=== PATIENT | female | born 1945 | race Caucasian/White ===

== ENCOUNTER 2024-04-01 21:20 | Emergency (ER) | payer MEDICARE, OTHER, SELFPAY ==
--- NOTE | ~2024-04-01 | CT_ITS ---
EXAMINATION: CT ABDOMEN AND PELVIS WITHOUT CONTRAST CLINICAL INFORMATION: Left flank pain history of stone COMPARISON: CT abdomen/pelvis 03/15/2010 TECHNIQUE: Multidetector volumetric imaging was performed from the superior aspect of the liver through the pubic symphysis. Sagittal and coronal reformatted images were obtained on the technologist's workstation. This CT examination was performed using dose optimization techniques as appropriate, variously including the following: *Automated exposure control *Adjustment of mA and/or kV according to patient size (this includes techniques or standardized protocols for targeted exams where dose is matched to indication/reason for exam; i.e. extremities or head) *Use of iterative reconstruction technique DLP: 1172 mGy-cm FINDINGS: LUNG BASES: Mild bibasilar atelectasis. No pleural effusion. Normal-sized heart without pericardial effusion. No coronary arterial calcifications noted. LIVER, GALLBLADDER, AND BILIARY TREE: Liver is diffusely hypoattenuating relative to the spleen. The liver is normal in size and shape. No focal hepatic lesion or biliary ductal dilatation is present. The gallbladder is physiologically distended with a 3 cm peripherally calcified gallstone, similar to 2010. No gallbladder wall thickening, or obvious pericholecystic inflammatory changes. PANCREAS: Unremarkable. SPLEEN: Unremarkable. ADRENAL GLANDS: Unremarkable. KIDNEYS AND URETERS: There is a 0.3 cm calculus in the proximal left ureter minimal associated left hydronephrosis. No additional nephrolithiasis. No right hydronephrosis. The kidneys are normal in size, shape, and attenuation. No perinephric stranding. BLADDER: Unremarkable. GASTROINTESTINAL TRACT: The small and large bowel are nondilated. Mild colonic diverticulosis without evidence of acute diverticulitis. Normal appendix. ABDOMINAL WALL: No bowel containing hernia is appreciated. LYMPH NODES: Normal. VASCULAR: The abdominal aorta is nonaneurysmal. Mild scattered atheromatous calcifications. PELVIC VISCERA: Normal CT appearance of the uterus. No adnexal masses. OSSEOUS STRUCTURES: No acute or suspicious osseous abnormality. Multilevel facet arthropathy in the lumbar spine. CT/CT abdomen pelvis wo IV con IMPRESSION: 1. There is a 0.3 cm calculus in the proximal left ureter with minimal associated left hydronephrosis. No additional nephrolithiasis. 2. Cholelithiasis. 3. Hepatic steatosis. 4. Mild colonic diverticulosis without evidence of acute diverticulitis. Fleischner guidelines were followed.
--- NOTE | 2024-04-01 21:38 | ED.ABDPAIN ---
HPI - Abdominal Pain General Chief Complaint: Abdominal Pain Stated Complaint: L flank pain moving towards back, kidney stones Time Seen by Provider: 04/01/24 21:36 Source: patient Mode of arrival: EMS Limitations: no limitations History of Present Illness HPI narrative: Patient with history of nonobstructive kidney stone noticed sudden onset of pain in the left flank area earlier today associated with nausea radiating to the left front of the abdomen no hematuria no urinary complaints no fever no chills patient never had similar pain in the past Related Data Previous Rx's ?Medication ?Instructions ?Recorded tamsulosin 0.4 mg capsule (Flomax) 0.4 mg PO BEDTIME #7 caps 04/02/24 tramadol 50 mg tablet 50 mg PO Q8-10H PRN pain #20 tabs 04/02/24 Allergies Allergy/AdvReac Type Severity Reaction Status Date / Time cephalexin [Cephalexin] Allergy Unknown UNKNOWN Verified 04/01/24 21:51 codeine [Codeine] Allergy Unknown UNKNOWN Verified 04/01/24 21:51 Review of Systems Review of Systems Yes all other systems are reviewed and are negative [facility] Social History Social History Alcohol intake: never Smoked in Last 30 Days: No Use of substances other than those prescribed or required for medical reasons: No Advance Directives: Yes Advance Directives Information Provided: No Advance Directives on File: No Do you have a plan to hurt others: No Plan Physical Exam ED Vital Signs: Vital Signs - 24 hr 04/01/24 21:57 Temperature 98.4 F Pulse Rate 67 Respiratory Rate 16 Blood Pressure 154/69 H Pulse Oximetry 94 Oxygen Delivery Method Room Air BMI result Body Mass Index 44.9 Appearance: Alert. Oriented X3. No acute distress. Eyes: No pallor or icterus ENT: Pharynx normal. Oral Mucosa moist Neck: Normal inspection. Neck supple. CVS: Normal heart rate and rhythm. Pulses normal. Respiratory: No respiratory distress. Equal air entry bilateral, no wheezing/rales/rhonchi Abdomen: Soft and nontender. Bowel sounds are present, no mass palpable, L CVA tenderness Skin: Skin warm and dry. Normal skin color. Normal skin turgor. Extremities: No lower extremity edema. No calf tenderness Neuro: Oriented X 3. Medical Decision Making Medical Decision Making MDM Narrative: Patient with 3 mm proximal left ureteral stone pain-free after IV hydration and pain medication in the ER likely going to pass. Will discharge patient home on Flomax and tramadol for pain advised to follow with urologist Differential Diagnosis Differential Diagnoses: The differential diagnosis associated with the presentation includes Renal colic/biliary colic/UTI Lab Data MDM Lab Attestation statement: I reviewed the patient's lab results. 04/01/24 23:11 04/01/24 23:11 Labs: Lab Results 04/01/24 Range/Units 23:11 WBC 9.3 (4.8-10.8) X10*3/uL RBC 4.33 (4.20-5.50) X10*6/uL Hgb 14.1 (12.0-16.0) g/dl Hct 41.0 (37.0-47.0) % MCV 94.7 (80.0-98.0) fL MCH 32.6 (27.0-33.0) pg MCHC 34.4 (31.0-35.0) g/dl RDW 13.2 (11.0-16.0) % Plt Count 167 (160-400) X10*3/uL MPV 10.9 (9.4-12.3) fL Immature Gran % (Auto) 0.2 (0.0-0.4) % Neut % (Auto) 84.6 H (45-73) % Lymph % (Auto) 8.3 L (20-40) % Haskell % (Auto) 5.5 (2-11) % Eos % (Auto) 0.6 (0-4) % Baso % (Auto) 0.8 (0-2) % Lymph # (Auto) 0.8 L (1.2-4.9) X10*3/uL Haskell # (Auto) 0.5 (0.1-1.2) X10*3/uL Eos # (Auto) 0.1 (0.0-0.4) X10*3/uL Baso # (Auto) 0.1 (0.0-0.2) X10*3/uL Abs Immat Gran (auto) 0.02 (0.00-0.03) X10*3/uL Absolute Neuts (auto) 7.9 (2.0-8.3) x10*3/uL Absolute Nucleated RBC 0.000 (0.0-0.012) X10*3/uL Nucleated RBC % (auto) 0.0 (0.0-0.2) /100WBC Sodium 139 (135-145) mmol/L Potassium 4.4 (3.3-5.1) mmol/L Chloride 106 (96-108) mmol/L Carbon Dioxide 22 (22-29) mmol/L Anion Gap 15 (12-20) BUN 24 H (9-16) mg/dL Creatinine 0.90 (0.5-1.4) mg/dL Estim Creat Clear Calc 73.4 Estimated GFR > 60 Random Glucose 193 H (60-115) mg/dL Calcium 9.2 (8.4-10.2) mg/dL Total Bilirubin 0.3 (0.0-1.0) mg/dL AST 43 H (5-31) U/L ALT 40 H (0-31) U/L Alkaline Phosphatase 55 (39-117) U/L Total Protein 7.1 (6.5-8.0) g/dL Albumin 4.1 (3.5-5.0) g/dL Lipase 31 (8-78) U/L Independent Interpretation I performed an independent interpretation of an: CT Scan Radiology Impression Discussion of test interpretation with radiology: I have reviewed the radiologist's reading. Radiologist Impression: CT/CT abdomen pelvis wo IV con IMPRESSION: 1. There is a 0.3 cm calculus in the proximal left ureter with minimal associated left hydronephrosis. No additional nephrolithiasis. 2. Cholelithiasis. 3. Hepatic steatosis. 4. Mild colonic diverticulosis without evidence of acute diverticulitis. Medications Administered Discontinued Medications Generic Name Dose Route Start Last Admin Trade Name Freq PRN Reason Stop Dose Admin Sodium Chloride 1,000 mls @ 999 mls/hr 04/01/24 22:18 04/01/24 22:41 Ns IV 04/01/24 23:18 999 mls/hr .Q1H1M ONE Administration Ketorolac Tromethamine 30 mg 04/01/24 22:18 04/01/24 22:46 Ketorolac Tromethamine 30 Mg/Ml Vial IVPUSH 04/01/24 22:19 30 mg ONCE ONE Administration Morphine Sulfate 2 mg 04/01/24 22:18 04/01/24 22:46 Morphine Sulfate 4 Mg/Ml Cartridge IVPUSH 04/01/24 22:19 2 mg ONCE ONE Administration Protocol Discharge Plan Discharge Clinical Impression: Calculus of left ureter Patient Disposition: Home, Self-Care Instructions: Ureteral Stones (ED) Additional Instructions: Drink plenty of fluids Pain medication as prescribed Flomax take 1 tablet daily till you pass the stone Follow-up with urologist if pain continues Prescriptions: New tramadol 50 mg tablet 50 mg PO Q8-10H PRN (Reason: pain) Qty: 20 0RF tamsulosin [Flomax] 0.4 mg capsule 0.4 mg PO BEDTIME Qty: 7 0RF Referrals: Tushar Spear MD [Physician] - 2 weeks Print Language: Turkish
[2024-04-01 21:50] VITALS: BMI 44.9
[2024-04-01 21:57] VITALS: BP 154/69; PULSE 67; RESP 16; TEMP 36.9; O2SAT 94
[2024-04-01] MEDS: 0.9 % Sodium Chloride 1,000 ML 999 ML IV (22:41)
[2024-04-01] MEDS: Morphine Sulfate 4 MG/ML CARTRIDGE 2 MG IVPUSH (22:46)
[2024-04-01] MEDS: Ketorolac Tromethamine 30 MG/ML VIAL IVPUSH (22:46)
--- NOTE | 2024-04-01 22:55 | PC.NURSE ---
pt medicated per MAR- 1l IVF infusing per order, pt awaiting CT scan read
[2024-04-01 23:14] LABS: MANUAL DIFF FLAG NO
[2024-04-01 23:15] LABS: Basophils Absolute Auto 0.1 X10*3/uL (0.0-0.2); Basophils Percent Auto 0.8 % (0-2); Eosinophils Absolute Auto 0.1 X10*3/uL (0.0-0.4); Eosinophils Percent Auto 0.6 % (0-4); Hemoglobin 14.1 g/dl (12.0-16.0); Imm Gran Abs Auto 0.02 X10*3/uL (0.00-0.03); Imm Gran Pct Auto 0.2 % (0.0-0.4); Lymphocytes Absolute Auto 0.8 X10*3/uL (1.2-4.9); Lymphocytes Percent Auto 8.3 % (20-40); Mean Corpuscular HGB Conc 34.4 g/dl (31.0-35.0); Mean Corpuscular Hemoglobin 32.6 pg (27.0-33.0); Mean Corpuscular Volume 94.7 fL (80.0-98.0); Mean Platelet Volume 10.9 fL (9.4-12.3); Monocytes Absolute Auto 0.5 X10*3/uL (0.1-1.2); Monocytes Percent Auto 5.5 % (2-11); Neutrophils Absolute Auto 7.9 x10*3/uL (2.0-8.3); Neutrophils Percent Auto 84.6 % (45-73); Platelet Count 167 X10*3/uL (160-400); Red Blood Count 4.33 X10*6/uL (4.20-5.50); Red Cell Distribution Width 13.2 % (11.0-16.0); White Blood Count 9.3 X10*3/uL (4.8-10.8)
[2024-04-01 23:30] LABS: Alanine Aminotransferase 40 U/L (0-31); Albumin Level 4.1 g/dL (3.5-5.0); Alkaline Phosphatase 55 U/L (39-117); Anion Gap 15 (12-20); Aspartate Amino Transferase 43 U/L (5-31); Bilirubin Total 0.3 mg/dL (0.0-1.0); Blood Urea Nitrogen 24 mg/dL (9-16); Calcium 9.2 mg/dL (8.4-10.2); Carbon Dioxide 22 mmol/L (22-29); Chloride 106 mmol/L (96-108); Creatinine Clr Calc Pharmacy 73.4; Estimated Glomerular Filt Rate > 60; Glucose Random 193 mg/dL (60-115); Lipase 31 U/L (8-78); Potassium 4.4 mmol/L (3.3-5.1); Sodium 139 mmol/L (135-145); Total Protein 7.1 g/dL (6.5-8.0)
[2024-04-02] MEDS: Tamsulosin HCL 0.4 MG CAPSULE PO (00:40)
[2024-04-02 00:43] VITALS: BP 154/69; PULSE 67; RESP 18; TEMP 36.6; O2SAT 98
== END 2024-04-02 00:44 | disposition home or self-care (01) ==
PROVIDERS: Emergency Provider Internal Medicine; PCP Family Medicine
DX: N13.2 Hydronephrosis with renal and ureteral calculous obstruction (principal)
CPT/HCPCS: 36415; 74176; 80053; 83690; 85025; 96374; 96375; 99284; 99285; J1885; J2270